=== PATIENT | male | born 1970 | race Native Hawaiian/Other Pacific Islander ===

== ENCOUNTER 2017-01-21 22:02 | Emergency (ER) | payer BC ==
[~2017-01-21] VITALS: Ht 167.6 cm; Wt 89.8 kg
[2017-01-21] MEDS ORDERED: LORA0.5T48 PO (22:11)
[2017-01-21] MEDS ORDERED: ATOR40TA29 PO (22:11)
--- NOTE | 2017-01-21 22:35 | NUR ---
PT B/B RA C/O ANXIETY. SEEN AND EXAMINED BY DELORIS.
[2017-01-21] MEDS ORDERED: IV NORMAL SALINE 1000 ML BAG IV ONE (23:30)
[2017-01-21] MEDS ORDERED: ONDANSETRON 4 MG/2 ML VIAL IV ONE (23:30)
[2017-01-21] MEDS ORDERED: ONDANSETRON 4 MG/2 ML VIAL ONE (23:49)
[2017-01-21 23:54] LABS: ALBUMIN 4.1 g/dL (3.4-5.0); BILIRUBIN,DIRECT 0.1 mg/dL (0.0-0.2); BILIRUBIN,TOTAL 0.4 mg/dL (0.2-1.0); CALCIUM 9.6 mg/dL (8.5-10.1); POTASSIUM 3.5 mmol/L (3.5-5.1); TOTAL PROTEIN, SERUM 7.6 g/dL (6.4-8.2)
[2017-01-22 00:04] LABS: BASOPHILS # (AUTO) 0.1 K/uL (0.0-0.2); BASOPHILS % (AUTO) 0.5 % (0.0-2.0); EOSINOPHILS # (AUTO) 0.1 K/uL (0.0-0.7); EOSINOPHILS % (AUTO) 0.9 % (0.0-7.0); HEMATOCRIT 48.5 % (40.0-50.0); HEMOGLOBIN 17.3 g/dL (14.0-18.0); LYMPHOCYTES # (AUTO) 1.4 K/uL (0.8-4.8); LYMPHOCYTES % (AUTO) 9.4 % (20.5-51.5); MEAN CORPUSCULAR HEMOGLOBIN 32.2 uug (27.0-31.0); MEAN CORPUSCULAR HGB CONC 36 g/dL (32.0-37.0); MEAN CORPUSCULAR VOLUME 90.1 fL (82.0-92.0); MONOCYTES # (AUTO) 1.2 K/uL (0.1-1.30); NEUTROPHILS # (AUTO) 12.1 K/uL (1.8-8.9); NEUTROPHILS % (AUTO) 81.2 % (38.5-71.5); RED BLOOD CELL COUNT(AUTO) 5.38 MIL/uL (4.70-6.10); RED CELL DISTRIBUTION WIDTH 12.1 % (11.5-14.5); WHITE BLOOD COUNT (AUTO) 14.9 K/uL (4.0-11.2)
[2017-01-22 00:10] LABS: PLATELET COUNT (AUTO) 117 K/uL (150-450)
[2017-01-22 00:12] LABS: CREATININE 1.5 mg/dL (0.6-1.3)
[2017-01-22 00:20] LABS: BAND % (MANUAL) 1 % (0-10); LYMPHOCYTES % (MANUAL) 11 % (20-40); MONOCYTES % (MANUAL) 5 % (2-10); NEUTROPHILS % (MANUAL) 83 % (42-75)
[2017-01-22 00:21] LABS: PLATELET ESTIMATE ADEQU
[2017-01-22] MEDS ORDERED: ONDANSETRON 4 MG/2 ML VIAL IV ONE (00:45)
[2017-01-22] MEDS ORDERED: IV NORMAL SALINE 1000 ML BAG IV ONE (00:45)
--- NOTE | 2017-01-22 00:45 | NUR ---
PT FEELING SL DIZZY STATES SAME EARLIER, NAUSEA STILL NOTED.
[2017-01-22] MEDS ORDERED: ONDANSETRON 4 MG/2 ML VIAL ONE (01:17)
--- NOTE | 2017-01-22 02:07 | NUR ---
PT FEELING BETTER AFTER 2ND NS, TALKED TO DR PARRA, ACI GIVEN AND PRESC EXPLAINED,DISCHARGED AMBULATORY IN STABLE COND, TO RIDE AN UBER TO GO HOME.
[2017-01-22 02:12] VITALS: BP 122/70
== END 2017-01-22 02:29 | disposition home or self-care (01) ==
LOC: ER 22:06
DX: K52.9 Noninfective gastroenteritis and colitis, unspecified (principal); F41.9 Anxiety disorder, unspecified; E78.5 Hyperlipidemia, unspecified; R42 Dizziness and giddiness
CPT/HCPCS: 36415; 80048; 80076; 83690; 85025; 96361; 96374; 96376; 99284; A4663; J2405 ×2; J7030 ×2